=== PATIENT | male | born 1935 | race Caucasian/White ===

== ENCOUNTER 2016-08-25 08:36 | Day surgery (SDC) | payer OTHER, MEDICARE ==
[2016-08-24 10:12] VITALS: BMI 31.4
[2016-08-25 11:04] VITALS: TEMP 97.6
[2016-08-25 11:55] VITALS: BP 106/74; PULSE 69
--- NOTE | 2016-08-28 12:43 | PATH ---
Surgical Pathology Report Patient Name: KENDRA KABA [facility]. Rec. #: [id number] /Age/Gender: 1935 (Age: 81) / M Account: [id number] Location: U-ENDOSCOPY Taken: 08/25/2016 Received: 08/25/2016 Reported: 08/28/2016 Physicians: Miguel Angel Nunez M.D. Specimen(s) Received A: POLYP DISTAL TRANSVERSE COLON B: POLYPS PROXIMAL TRANSVERSE COLON Clinical History Adenoma surveillance Colon polyps, diverticulosis, internal hemorrhoids Final Diagnosis A. COLON, DISTAL TRANSVERSE, POLYP, POLYPECTOMY: FRAGMENTS OF HYPERPLASTIC POLYP. B. COLON, PROXIMAL TRANSVERSE, POLYPS, POLYPECTOMY: FRAGMENTS OF TUBULAR ADENOMA. Electronically Signed Dwight Siddiqi M.D. Gross Description A. Received in formalin, labeled "polyp distal transverse colon" are 2 gunderson, irregular portions of soft tissue measuring 0.1 and 0.2 cm in greatest dimension. The specimens are submitted in toto in one cassette. B. Received in formalin, labeled "polyps proximal transverse colon" are 4 gunderson, irregular portions of soft tissue ranging from 0.2-0.3 cm in greatest dimension. The specimens are submitted in toto in one cassette. 08/25/201608/25/2016
== END 2016-08-25 11:55 | disposition home or self-care (01) ==
LOC: JASU-ENDO 08:36
PROVIDERS: ATTEND Internal Medicine Gastroenterology
PROC: 0DBL8ZX Excision of Transverse Colon, Via Natural or Artificial Opening Endoscopic, Diagnostic (ICD-10-PCS; principal; 2016-08-25 10:00)
DX: Z86.010 Personal history of colon polyps (principal); K63.5 Polyp of colon; D12.3 Benign neoplasm of transverse colon; K57.30 Diverticulosis of large intestine without perforation or abscess without bleeding; K64.8 Other hemorrhoids; I10 Essential (primary) hypertension; J45.909 Unspecified asthma, uncomplicated; E11.9 Type 2 diabetes mellitus without complications; I35.0 Nonrheumatic aortic (valve) stenosis; L10.9 Pemphigus, unspecified
CPT/HCPCS: 88305-TC

== ENCOUNTER 2017-06-27 08:38 | Day surgery (SDC) | payer OTHER, MEDICARE ==
[2017-06-26 15:06] VITALS: BMI 32.1
[2017-06-27 10:03] VITALS: TEMP 97.6
[2017-06-27 10:24] VITALS: PULSE 78
[2017-06-27 13:25] VITALS: BP 126/88
--- NOTE | 2017-07-02 13:14 | PATH ---
Surgical Pathology Report Patient Name: KENDRA KABA [facility]. Rec. #: [id number] /Age/Gender: 1935 (Age: 82) / M Account: [id number] Location: [facility]-ENDOS[facility] Taken: 06/27/2017 Received: 06/27/2017 Reported: 07/02/2017 Physicians: Miguel Angel Nunez M.D. Specimen(s) Received A: BX ANTRUM B: BX ESOPHAGUS @30CM Clinical History Dysphagia, abnormal PET scan results involving esophagus Postoperative diagnosis: GERD with Mena's esophagus, nodular mucosa, rule out adenocarcinoma Final Diagnosis A. STOMACH, ANTRUM, BIOPSY: GASTRIC ANTRAL MUCOSA WITH MILD CHRONIC GASTRITIS. IMMUNOHISTOCHEMICAL STAIN FOR H. PYLORI IS NEGATIVE. B. 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 Comment: Case seen interdepartmentally. Findings discussed with Dr. Nunez. Her2 studies are pending and will be reported separately. Electronically Signed Shana Wilcox M.D. Addendum Reported: 07/03/2017 Addendum Diagnosis Result of Her2 (IHC) performed and interpreted on block "B" at [place], [place] ([id number]) shows: Her2 IHC (EP3 from [employer], formerly known as [id number], using Gonzalez Polymer Refine detection kit):1+ (Negative). Shana Wilcox M.D. Gross Description A. Received in formalin, labeled "biopsy gastric antrum" is a gunderson, irregular portion of soft tissue measuring 0.3 cm. in greatest dimension. The specimen is submitted in toto in one cassette. B. Received in formalin, labeled "biopsy esophagus at 30 cm" are 3 gunderson, irregular portions of soft tissue ranging from 0.3-0.4 cm. in greatest dimension. The specimens are submitted in toto in one cassette. /06/27/2017 saudi06/27/2017
== END 2017-06-27 11:05 | disposition home or self-care (01) ==
LOC: JASU-ENDO 08:38
PROVIDERS: ATTEND Internal Medicine Gastroenterology
PROC: 0DB68ZX Excision of Stomach, Via Natural or Artificial Opening Endoscopic, Diagnostic (ICD-10-PCS; 2017-06-27)
PROC: 0DB38ZX Excision of Lower Esophagus, Via Natural or Artificial Opening Endoscopic, Diagnostic (ICD-10-PCS; principal; 2017-06-27 09:45)
DX: C15.5 Malignant neoplasm of lower third of esophagus (principal); K29.70 Gastritis, unspecified, without bleeding; K22.70 Barrett's esophagus without dysplasia; I10 Essential (primary) hypertension; E11.9 Type 2 diabetes mellitus without complications; Z79.84 Long term (current) use of oral hypoglycemic drugs; I48.91 Unspecified atrial fibrillation; Z79.01 Long term (current) use of anticoagulants
CPT/HCPCS: 88305-TC; 88342-TC